=== PATIENT | female | born 2000 | race Caucasian/White ===

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

== ENCOUNTER 2018-02-05 23:45 | Emergency (ER) | payer OTHER ==
[~2018-02-05] VITALS: Ht 157.5 cm; Wt 61.7 kg
[2018-02-05 23:53] VITALS: Ht 157.5 cm; Wt 61.7 kg
[2018-02-06 01:00] VITALS: BP 123/65
== END 2018-02-06 01:00 | disposition home or self-care (01) ==
LOC: ED 23:45
DX: L03.311 Cellulitis of abdominal wall (principal)

== ENCOUNTER 2018-07-29 23:54 | Emergency (ER) | payer OTHER ==
[~2018-07-29] VITALS: Ht 154.9 cm; Wt 63.5 kg
[2018-07-30] VITALS: Ht 154.9 cm; Wt 63.5 kg
[2018-07-30 00:50] LABS: BASOPHIL % 0.6 % (0-2)
[2018-07-30 00:51] LABS: PLATELET COUNT 464 x10^3mcL (130-400); RED CELL DISTRIBUTION WIDTH 15.1 % (11.5-14.5)
[2018-07-30 01:00] LABS: ALBUMIN 3.5 g/dL (3.4-5.0); ALKALINE PHOSPHATASE 51 U/L (46-116); ALT/SGPT 14 U/L (14-59); AST/SGOT 13 U/L (15-37); BILIRUBIN TOTAL 0.2 mg/dL (0.20-1.00); CALCIUM 8.8 mg/dL (8.5-10.1); CARBON DIOXIDE 23.6 mmol/L (21-32); CHLORIDE SERUM 100 mmol/L (98-107); CREATININE SERUM 0.8 mg/dL (0.6-1.0); GFR1 > 60 mL/min; GLUCOSE SERUM 122 mg/dL (74-106); SODIUM SERUM 136 mmol/L (136-145); TOTAL PROTEIN, SERUM 8.2 g/dL (6.4-8.2)
[2018-07-30 01:04] LABS: POTASSIUM SERUM 2.8 mmol/L (3.5-5.1)
[2018-07-30 04:17] VITALS: BP 109/72
== END 2018-07-30 04:17 | disposition home or self-care (01) ==
LOC: ED 23:54
PROVIDERS: Emergency Medicine
DX: R00.2 Palpitations (principal); T40.7X5A Adverse effect of cannabis (derivatives), initial encounter; E87.6 Hypokalemia; Y92.89 Other specified places as the place of occurrence of the external cause
CPT/HCPCS: J2060; J7030

== ENCOUNTER 2019-01-06 14:45 | Emergency (ER) | payer OTHER ==
[~2019-01-06] VITALS: Ht 154.9 cm; Wt 63.5 kg
[2019-01-06 14:54] VITALS: Ht 154.9 cm; Wt 63.5 kg
[2019-01-06 17:52] VITALS: BP 121/70
== END 2019-01-06 17:52 | disposition home or self-care (01) ==
LOC: ED 14:45
DX: T63.481A Toxic effect of venom of other arthropod, accidental (unintentional), initial encounter (principal); L29.8 Other pruritus; L03.113 Cellulitis of right upper limb; Z86.2 Personal history of diseases of the blood and blood-forming organs and certain disorders involving the immune mechanism; Y92.828 Other wilderness area as the place of occurrence of the external cause

== ENCOUNTER 2019-06-27 13:51 | Emergency (ER) | payer OTHER ==
[~2019-06-27] VITALS: Ht 154.9 cm; Wt 59.0 kg
[2019-06-27 14:16] VITALS: Ht 154.9 cm; Wt 59.0 kg
[2019-06-27 16:59] LABS: BASOPHIL % 0.7 % (0-2); PLATELET COUNT 352 x10^3mcL (130-400); RED CELL DISTRIBUTION WIDTH 14.3 % (11.5-14.5)
[2019-06-27 17:13] LABS: CALCIUM 9.2 mg/dL (8.5-10.1); CARBON DIOXIDE 30.4 mmol/L (21-32); CHLORIDE SERUM 100 mmol/L (98-107); CREATININE SERUM 0.8 mg/dL (0.6-1.0); GFR1 > 60 mL/min; GLUCOSE SERUM 109 mg/dL (74-106); POTASSIUM SERUM 3.5 mmol/L (3.5-5.1); SODIUM SERUM 137 mmol/L (136-145)
[2019-06-27 17:17] LABS: ALBUMIN 3.6 g/dL (3.4-5.0); ALKALINE PHOSPHATASE 90 U/L (46-116); ALT/SGPT 34 U/L (14-59); AST/SGOT 26 U/L (15-37); BILIRUBIN TOTAL 0.5 mg/dL (0.20-1.00)
[2019-06-27 18:13] VITALS: BP 99/68
== END 2019-06-27 18:34 | disposition home or self-care (01) ==
LOC: ED 13:51
PROVIDERS: Emergency Medicine
DX: R42 Dizziness and giddiness (principal); R10.32 Left lower quadrant pain; Z86.2 Personal history of diseases of the blood and blood-forming organs and certain disorders involving the immune mechanism
CPT/HCPCS: 36415; Q0092

== ENCOUNTER 2019-08-28 15:56 | Emergency (ER) | payer OTHER ==
[~2019-08-28] VITALS: Ht 154.9 cm; Wt 60.8 kg
[2019-08-28 16:02] VITALS: Ht 154.9 cm; Wt 60.8 kg
[2019-08-28 17:28] LABS: BASOPHIL % 0.3 % (0-2); PLATELET COUNT 374 x10^3mcL (130-400); RED CELL DISTRIBUTION WIDTH 14.4 % (11.5-14.5)
[2019-08-28 17:42] LABS: CALCIUM 8.8 mg/dL (8.5-10.1); CARBON DIOXIDE 25.6 mmol/L (21-32); CHLORIDE SERUM 103 mmol/L (98-107); CREATININE SERUM 0.7 mg/dL (0.6-1.0); GFR1 > 60 mL/min; GLUCOSE SERUM 97 mg/dL (74-106); POTASSIUM SERUM 3.5 mmol/L (3.5-5.1); SODIUM SERUM 135 mmol/L (136-145)
[2019-08-28 17:47] LABS: ALBUMIN 3.4 g/dL (3.4-5.0); ALKALINE PHOSPHATASE 61 U/L (46-116); ALT/SGPT 16 U/L (14-59); AST/SGOT 23 U/L (15-37); BILIRUBIN TOTAL 0.88 mg/dL (0.20-1.00); LIPASE 159 IU/L (73-393); TOTAL PROTEIN, SERUM 8.2 g/dL (6.4-8.2)
[2019-08-28 19:35] VITALS: BP 125/80
== END 2019-08-28 19:35 | disposition home or self-care (01) ==
LOC: ED 15:56
PROVIDERS: Emergency Medicine
DX: K52.9 Noninfective gastroenteritis and colitis, unspecified (principal)
CPT/HCPCS: 36415